=== PATIENT | female | born 1975 | race Caucasian/White ===

== ENCOUNTER 2017-07-20 21:15 | Emergency (ER) | payer OTHER ==
[~2017-07-20] VITALS: Ht 167.6 cm; Wt 96.5 kg
[2017-07-20 21:36] VITALS: Ht 167.6 cm; Wt 96.5 kg
--- NOTE | 2017-07-21 00:17 | ERA ---
ER Documentation Chief Complaint Date/Time DATE: 07/21/17 TIME: 00:14 Chief Complaint non healing wound over R big toe x 5 weeks now HPI Otherwise healthy 42-year-old female presents 5 weeks status post wall versus left lower first digit. Has been evaluated twice first time being on antibiotics. Second time she went to the urgent care they said that they do not think it is infected but the swelling is needed time to go down. 2 weeks later today she presents with only worsening of symptoms. Denies fever, loss of range of motion, numbness, tingling, discharge, foul smell. Tetanus status up-to-date. Patient has no other complaints and describes no other associated manifestations. Nursing notes have been reviewed and are consistent with history given. ROS All systems reviewed and are negative except as per history of present illness. Medications Home Meds Active Scripts Hydrocodone/Acetaminophen (Bunker 5-325 Tablet) 1 Each Tablet, 1 TAB PO Q6H Y for PAIN, #20 TAB Prov:ALEE BARRON PA-C 07/21/17 Cephalexin* (Keflex*) 500 Mg Capsule, 500 MG PO QID for 5 Days, CAP Prov:ALEE BARRON PA-C 07/21/17 Allergies Allergies: Coded Allergies: No Known Allergy (Unverified , 07/20/17) Physical Exam Vitals Vital Signs Date Time Temp Pulse Resp B/P Pulse Ox O2 Delivery O2 Flow Rate FiO2 07/20/17 21:36 98.3 80 18 139/90 99 Physical Exam Const: Overweight healthy-appearing 41-year-old female no acute distress Head: Atraumatic Eyes: Normal Conjunctiva ENT: Normal External Ears, Nose and Mouth. Neck: Full range of motion..~ No meningismus. Resp: Clear to auscultation bilaterally Cardio: Regular rate and rhythm, no murmurs Abd: Soft, non tender, non distended. Normal bowel sounds Skin: As noted in extremity exam Back: No midline or flank tenderness Ext: In large erythematous non-warm but tender area on the medial aspect of the left lower first digit. No active drainage. Neurovascularly intact. Neur: Awake and alert Psych: Normal Mood and Affect Results 24 hrs Current Medications Medications (Trade) Dose Ordered Sig/Jai Route PRN Reason Start Time Stop Time Status Last Admin Dose Admin Lidocaine (Xylocaine 1% (Mdv) 20 ml) 20 ml ONCE ONCE SC 07/21/17 00:30 07/21/17 00:31 DC Acetaminophen/ Hydrocodone Bitart (Bunker (10/325)) 1 tab ONCE ONCE PO 07/21/17 02:00 07/21/17 02:01 DC 07/21/17 02:07 Ondansetron HCl (Zofran Odt) 4 mg ONCE STAT ODT 07/21/17 01:52 07/21/17 01:54 DC 07/21/17 02:07 Procedures/MDM 41-year-old female presents 5 weeks status post wall versus left lower first digit. Erythema and swelling have been progressively worsening over the past 5 weeks. Csma-kes-afrqhsm ibuprofen without relief. Course of Keflex and Bactrim without relief. I have little suspicion for spreading infection, systemic involvement, or serious bacterial infection. X-ray was obtained, read by the radiologist, given the impression of unremarkable without infection, dislocation, or fracture. 4 mL of lidocaine without epi was used to anesthetize the area using digital block. 2 mm incision on the edge of the nail bed was made with an 11 blade. 70 mL of blood without pus evacuated. Possible subungual hematoma. Electrocautery was used at the edge of the nail bed as well without any evacuation of fluid. Significant skin overlying of the nail bed. Medial portion of the nailbed was removed. No complications. Neurovascularly intact after procedure. Patient was given Bunker and Zofran after the procedure for symptomatic relief. Patient will be discharged with addition of Keflex to the Bactrim that she is already taking currently. Along with Bunker 20 tabs for symptomatic relief. I have spoke with the patient regarding their condition and future management. They have verbally responded that they understand their status and treatment plan. The patients vitals are stable, and their current condition is appropriate for discharge. The patient will be given discharge instructions with return precautions. Departure Diagnosis: Primary Impression: Injury of toe Qualified Code: S99.922A - Injury of toe on left foot, initial encounter Additional Impression: Pain of toe Qualified Code: M79.675 - Pain of toe of left foot Condition: Stable Additional Instructions: Follow up with your PCP within the next 1-3 days for a more thorough evaluation and a possible referral to a specialist. Return the the emergency department immediately if symptoms worsen or change. If you have any questions regarding medications, ask your pharmacist or us before you leave. If any adverse reactions occur while taking your medications, discontinue the treatment and return to the emergency department immediately. Take your medications as directed, and complete the entire course of treatment. ALEE BARRON PA-C Jul 21, 2017 00:17
[2017-07-21] MEDS ORDERED: LIDOCAINE 1% (MDV) 20 ML INJ SC ONE (00:30)
--- NOTE | 2017-07-21 01:01 | RADRPT ---
PROCEDURE: XR Toe. CLINICAL INDICATION: 41 years of age, female. Trauma. Pain.. TECHNIQUE: 2 views of the left great toe. COMPARISON: None available. FINDINGS: No acute fracture or dislocation is identified. There is a mild medial soft tissue swelling. No radiopaque foreign body is identified. IMPRESSION: Negative for evidence of acute fracture or dislocation of the left great toe. RPTAT: [facility] Physician Sergei Date Time Electronically viewed and signed by Jean Paul Allen Physician on 07/21/2017 01:01 CS/
[2017-07-21] MEDS ORDERED: CEPH-443 PO (01:51)
[2017-07-21] MEDS ORDERED: HYDR-906 PO (01:52)
[2017-07-21] MEDS ORDERED: ONDANSETRON (ODT) 4 MG TAB ODT STA (01:52)
[2017-07-21] MEDS ORDERED: HYDROCODONE/APAP (10/325) TAB PO ONE (02:00)
== END 2017-07-21 03:15 | disposition home or self-care (01) ==
LOC: FTE 21:15
DX: S99.922A Unspecified injury of left foot, initial encounter (principal); W22.01XA Walked into wall, initial encounter; Y92.9 Unspecified place or not applicable
CPT/HCPCS: 11740; 73660; Z7502; Z7610